=== PATIENT | female | born 1995 | race African-American/Black ===

== ENCOUNTER 2017-08-12 16:00 | Emergency (ER) | payer MEDICAID ==
[~2017-08-12] VITALS: Ht 167.6 cm; Wt 73.0 kg
[2017-08-12] MEDS ORDERED: FLUORESCEIN SODIUM 1MG/STRIP OP ONE (18:45)
[2017-08-12] MEDS ORDERED: ACETAMINOPHEN 500MG TABLET PO ONE (18:45)
[2017-08-12] MEDS ORDERED: TETRACAINE 0.5% OPHTH DROPS 4ML OP ONE (18:45)
[2017-08-12] MEDS ORDERED: AMOXICILLIN/POTASSIUM CLAVULANATE 875/125MG TAB PO ONE (20:30)
[2017-08-12 21:18] VITALS: BP 119/69
== END 2017-08-12 21:18 | disposition home or self-care (01) ==
LOC: ER 17:17
DX: S02.82XA Fracture of other specified skull and facial bones, left side, initial encounter for closed fracture (principal); S05.01XA Injury of conjunctiva and corneal abrasion without foreign body, right eye, initial encounter; I10 Essential (primary) hypertension; F17.200 Nicotine dependence, unspecified, uncomplicated; Y04.0XXA Assault by unarmed brawl or fight, initial encounter; Y93.89 Activity, other specified; Y99.8 Other external cause status; Y92.89 Other specified places as the place of occurrence of the external cause
CPT/HCPCS: 70450; 70486; 81025; 99284

== ENCOUNTER 2017-08-25 13:08 | Emergency (ER) | payer MEDICAID ==
[~2017-08-25] VITALS: Ht 167.6 cm; Wt 71.0 kg
[2017-08-25] MEDS: TETANUS, DIPHTHERIA, PERTUSSIS VAC/PF 0.5ML (>7YR OLD) IM ONE (14:01)
[2017-08-25] MEDS: HYDROCODONE/ACETAMINOPHEN 5/325MG TABLET PO ONE (14:02)
[2017-08-25] MEDS: CEFTRIAXONE SODIUM 1 G/VIAL IM ONE (14:02)
[2017-08-25 15:44] VITALS: BP 105/51
== END 2017-08-25 15:46 | disposition home or self-care (01) ==
LOC: ER 13:08
DX: T63.301A Toxic effect of unspecified spider venom, accidental (unintentional), initial encounter (principal); F17.200 Nicotine dependence, unspecified, uncomplicated; L03.115 Cellulitis of right lower limb; Y92.89 Other specified places as the place of occurrence of the external cause
CPT/HCPCS: 73560; 87070; 87205; 90471; 90715; 93971; 96372; 99285; J0696

== ENCOUNTER 2017-08-28 12:46 | Emergency (ER) | payer MEDICAID ==
[~2017-08-28] VITALS: Ht 160 cm; Wt 69.0 kg
[2017-08-28 12:56] VITALS: BP 102/69
== END 2017-08-28 16:27 | disposition left against medical advice (07) ==
LOC: ER 13:07
DX: Z48.00 Encounter for change or removal of nonsurgical wound dressing (principal); Z53.21 Procedure and treatment not carried out due to patient leaving prior to being seen by health care provider

== ENCOUNTER 2023-06-20 23:06 | Emergency (ER) | payer MEDICAID, OTHER ==
[~2023-06-20] VITALS: Ht 167.6 cm; Wt 185.0 kg
[2023-06-20 23:12] VITALS: O2SAT 99
[2023-06-20 23:27] VITALS: BP 134/64; PULSE 111; RESP 18; TEMP 97.6
[2023-06-21] MEDS ORDERED: CEPH500C2 MT (15:57)
[2023-06-21] MEDS ORDERED: SULF1TAB48 MT (15:57)
== END 2023-06-21 01:30 | disposition left against medical advice (07) ==
LOC: ER 23:06
DX: Z53.21 Procedure and treatment not carried out due to patient leaving prior to being seen by health care provider (principal)
CPT/HCPCS: 99281

== ENCOUNTER 2023-06-21 12:20 | Emergency (ER) | payer MEDICAID, OTHER ==
[~2023-06-21] VITALS: Ht 170.2 cm; Wt 90.0 kg
[2023-06-21 12:37] VITALS: BP 120/67; PULSE 95; RESP 20; TEMP 98.4; O2SAT 100
[2023-06-21] MEDS ORDERED: BACITRACIN ZINC OINT UDPKT TOP ONE (14:00)
[2023-06-21] MEDS ORDERED: TETANUS, DIPHTHERIA, PERTUSSIS VAC/PF 0.5ML (>10YR OLD) IM ONE (14:00)
[2023-06-21] MEDS ORDERED: LIDOCAINE HCL/PF 1% 10 MG/ML 5ML VIAL INFIL ONE (14:00)
[2023-06-21] MEDS ORDERED: SULF1TAB48 MT (15:57)
[2023-06-21] MEDS ORDERED: CEPH500C2 MT (15:57)
== END 2023-06-21 16:17 | disposition home or self-care (01) ==
LOC: ER 13:45
DX: L02.01 Cutaneous abscess of face (principal)
CPT/HCPCS: 90715; 10060; 90471; 99283; J3490; Z7610 ×5